=== PATIENT | female | born 1940 | race Two or more races ===

== ENCOUNTER 2019-06-07 14:47 | Emergency (ER) | payer OTHER ==
[~2019-06-07] VITALS: Ht 152.4 cm; Wt 76.2 kg
[~2019-06-07 14:47] MED LIST: NOVOLOG100 U/ML; [UNRECOGNIZED DRUG - OTHER]
== END 2019-06-07 17:10 | disposition home or self-care (01) ==
LOC: ER 14:47
DX: H61.23 Impacted cerumen, bilateral (principal)

== ENCOUNTER → 2019-11-16 | Emergency (ER) | payer OTHER ==
[~2019-11-16] VITALS: Ht 157.5 cm; Wt 59.0 kg
== END | disposition home or self-care (01) ==
LOC: ER 21:42
DX: J06.9 Acute upper respiratory infection, unspecified (principal)

== ENCOUNTER 2020-07-23 12:39 | Emergency (ER) | payer OTHER ==
[~2020-07-23] VITALS: Ht 147.3 cm; Wt 68.5 kg
[2020-07-23] MEDS ORDERED: FAMOTIDINE40 MG (12:50)
[2020-07-23] MEDS ORDERED: VALSARTAN160 MG (12:50)
[2020-07-23] MEDS ORDERED: LEVOTHYROXINE75 MCG (12:51)
[2020-07-23] MEDS ORDERED: HUMULIN 70100 UNIT/2 (12:51)
[2020-07-23] MEDS ORDERED: FLONASE16 GM (12:51)
[2020-07-23] MEDS ORDERED: GABAPENTIN600 MG (12:51)
[2020-07-23] MEDS ORDERED: LOSARTAN-HCTZ1 EACH (12:52)
== END 2020-07-23 17:36 | disposition home or self-care (01) ==
LOC: ER 12:39
DX: M16.11 Unilateral primary osteoarthritis, right hip (principal); E11.65 Type 2 diabetes mellitus with hyperglycemia

== ENCOUNTER → 2021-03-18 | Emergency (ER) | payer OTHER ==
[~2021-03-18] VITALS: Ht 147.3 cm; Wt 68.5 kg
[~2021-03-18] MED LIST changes: +FAMOTIDINE40 MG; +FLONASE16 GM; +GABAPENTIN600 MG; +HUMULIN 70100 UNIT/2; +JANUMET 50-5001 EACH PO; +LEVOTHYROXINE75 MCG; +LOSARTAN-HCTZ1 EACH; +PLAVIX75 MG PO; +VALSARTAN160 MG
== END | disposition home or self-care (01) ==
LOC: ER 08:48
DX: K57.30 Diverticulosis of large intestine without perforation or abscess without bleeding (principal); R10.13 Epigastric pain; R63.0 Anorexia; Z03.818 Encounter for observation for suspected exposure to other biological agents ruled out

== ENCOUNTER 2021-10-06 14:57 | Emergency (ER) | payer OTHER ==
[~2021-10-06] VITALS: Ht 147.3 cm; Wt 69.4 kg
== END 2021-10-06 18:57 | disposition home or self-care (01) ==
LOC: ER 14:57
DX: M77.32 Calcaneal spur, left foot (principal); M79.672 Pain in left foot

== ENCOUNTER 2024-01-23 11:29 | Emergency (ER) | payer OTHER ==
[~2024-01-23] VITALS: Ht 149.9 cm; Wt 54.4 kg
[2024-01-23] MEDS ORDERED: ACETAMINOPHEN 500 MG GEL..CAP PO ONE (14:00)
== END 2024-01-23 14:50 | disposition home or self-care (01) ==
LOC: ER 11:30
DX: M77.8 Other enthesopathies, not elsewhere classified (principal); M79.641 Pain in right hand; I10 Essential (primary) hypertension; E03.8 Other specified hypothyroidism; E11.9 Type 2 diabetes mellitus without complications; Z79.4 Long term (current) use of insulin

== ENCOUNTER 2024-10-20 07:00 | Emergency (ER) | payer OTHER ==
[~2024-10-20] VITALS: Ht 152.4 cm; Wt 68.9 kg
[2024-10-20] MEDS ORDERED: 0.9 % SODIUM CHLORIDE 1,000 ML IV ONE (08:15)
[2024-10-20] MEDS ORDERED: ONDANSETRON HCL 2 MG/ML VIAL IV ONE (08:15)
[2024-10-20 09:16] LABS: HEMATOCRIT 37.7 % (36.0-45.00); HEMOGLOBIN 12.2 g/dL (12.0-15.00); MEAN CELL VOLUME 91.6 fL (80.00-100.00); MEAN CORPUSCULAR HEMOGLOBIN 29.7 pg (27.00-32.0); MEAN CORPUSCULAR HGB CONC 32.4 g/dl (32.0-36.0); PLATELET COUNT 282 K/uL (150-450); RED BLOOD COUNT 4.12 M/uL (4.00-6.00); RED CELL DISTRIBUTION WIDTH 13.9 % (11.5-14.5)
[2024-10-20 09:27] LABS: ALBUMIN 3.9 gm/dL (3.4-5.0); BILIRUBIN TOTAL 0.63 mg/dL (0.3-1.2); CALCIUM 10.1 mg/dL (8.5-10.1); CREATININE SERUM 1.22 mg/dL (0.55-1.02); GFR 42.09; POTASSIUM 4.31 mEq/L (3.5-5.1); TOTAL PROTEIN 7.9 gm/dL (6.4-8.2)
[2024-10-20 14:16] LABS: HEMATOCRIT 35.6 % (36.0-45.00); MEAN CELL VOLUME 89.8 fL (80.00-100.00); MEAN CORPUSCULAR HEMOGLOBIN 30.3 pg (27.00-32.0); MEAN CORPUSCULAR HGB CONC 33.7 g/dl (32.0-36.0); PLATELET COUNT 287 K/uL (150-450); RED BLOOD COUNT 3.96 M/uL (4.00-6.00); RED CELL DISTRIBUTION WIDTH 14.4 % (11.5-14.5)
== END 2024-10-20 15:18 | disposition home or self-care (01) ==
LOC: ER 07:02
PROVIDERS: General Practice
DX: K52.9 Noninfective gastroenteritis and colitis, unspecified (principal); R11.10 Vomiting, unspecified; I10 Essential (primary) hypertension; E11.9 Type 2 diabetes mellitus without complications; Z79.4 Long term (current) use of insulin
CPT/HCPCS: 36415; 74176; 96365; 96366; 99284; J2405; J7030